=== PATIENT | male | born 1980 | race African-American/Black ===

== ENCOUNTER 2016-06-22 19:07 | Emergency (ER) | payer OTHER ==
[~2016-06-22] VITALS: Ht 167.6 cm; Wt 79.5 kg
[~2016-06-22 19:07] MED LIST: BENZ1TAB PO; HALO1 PO; HYDR50 PO; IBUP800 PO
[2016-06-22 19:08] VITALS: BP 135/65; PULSE 94; RESP 16; TEMP 98.8; O2SAT 96
[2016-06-22] MEDS ORDERED: VIST50CA PO (19:16)
[2016-06-22] MEDS ORDERED: HALO1TAB PO (19:17)
[2016-06-22] MEDS ORDERED: IBUPROFEN 800 MG TAB PO ONE (19:45)
--- NOTE | 2016-06-22 20:20 | PD ---
HPI Chief Complaint: GI Complaint Time Seen by Provider: 20:18 Travel History International Travel<30 days: No Contact w/Intl Traveler<30days: No Traveled to known affect area: No History of Present Illness HPI 36-year-old male with no significant medical history presents to the emergency department for evaluation of sore throat, fever, body aches, and chills. Patient states this has been going on since this morning. He states that he was sharing a joint with a girl who has had bronchitis. He states that she got a lot of her saliva on the joint. He states when he went to smoke the weed from the joint he began to feel like he was getting her sickness. He states he is only gotten worse since then. Denies any nausea, vomiting, diarrhea. No chest pain or tightness. No cough. No other symptoms to report. PFSH Past Medical History Alzheimer's Disease: No Arthritis: No Asthma: Yes Autoimmune Disease: No Blood Disorders: No Anxiety: Yes Depression: Yes Chemotherapy: No COPD: No Cerebrovascular Accident: No Diminished Hearing: No Endocrine: No Glaucoma: No Genitourinary: No Hepatitis: No Hiatal Hernia: No Hypertension: No Immune Disorder: No Musculoskeletal: No Neurologic: No Reproductive: No Migraines: No Radiation Therapy: No Schizophrenia: Yes Sleep Apnea: No Thyroid Disease: No Past Surgical History Abdominal Surgery: No Cardiac Surgery: No Ear Surgery: No Endocrine Surgery: No Eye Surgery: No Genitourinary Surgery: No Gynecologic Surgery: No Oral Surgery: Yes Pacemaker: No Thoracic Surgery: No Other Surgery: Yes (HEMORROIDECTOMY) Social History Alcohol Use: No (PT DENIES) Tobacco Use: Yes (1PPD) Substance Use: Yes (PT ADMITS TO MARIJUANA, FLAKKA) Allergies-Medications (Allergen,Severity, Reaction): Coded Allergies: Amoxicillin (Verified Allergy, Severe, HIVES, 06/22/16) Penicillin (Verified Allergy, Severe, 06/22/16) Reported Meds & Prescriptions Reported Meds & Active Scripts Active Reported Haloperidol 1 Mg Tab 1 Mg PO BID Vistaril (Hydroxyzine Pamoate) 50 Mg Cap 50 Mg PO BID PRN Review of Systems Except as stated in HPI: all other systems reviewed are Neg Physical Exam Narrative GENERAL: Well-nourished male patient in no acute distress SKIN: Warm and dry. HEAD: Atraumatic. Normocephalic. EYES: Pupils equal and round. No scleral icterus. No injection or drainage. ENT: Mucosa pink and moist drinks with erythema, no exudates.. No uvular edema. No uvular, palatal, or tonsillar deviation. Airway patent. Nasal turbinates appear normal without nasal blood, purulent drainage or septal hematoma. NECK: Trachea midline. No JVD. CARDIOVASCULAR: Regular rate and rhythm. No murmur appreciated. RESPIRATORY: No accessory muscle use. Clear to auscultation. Breath sounds equal bilaterally. GASTROINTESTINAL: Abdomen soft, non-tender, nondistended. Hepatic and splenic margins not palpable. MUSCULOSKELETAL: No obvious deformities. No clubbing. No cyanosis. No edema. NEUROLOGICAL: Awake and alert. No obvious cranial nerve deficits. Motor grossly within normal limits. Normal speech. PSYCHIATRIC: Appropriate mood and affect; insight and judgment normal. Data Data Last Documented VS Vital Signs Date Time Temp Pulse Resp B/P Pulse Ox O2 Delivery O2 Flow Rate FiO2 06/22/16 19:08 98.8 94 16 135/65 96 Room Air Orders Influenzae A/B Antigen (06/22/16 19:35) Ibuprofen (Motrin) (06/22/16 19:45) MDM Medical Decision Making Medical Screen Exam Complete: Yes Emergency Medical Condition: Yes Medical Record Reviewed: Yes Differential Diagnosis Influenza versus pharyngitis strep versus viral versus viral syndrome Narrative Course 36-year-old male presents to emergency department for evaluation. Patient appears without distress. Influenza screen is positive for influenza A. Patient is calm. Symptomatic care. He agrees to return immediately with any acute worsening of symptoms. Diagnosis Primary Impression: Influenza A Referrals: Primary Care Physician Patient Instructions: General Instructions, Influenza (ED) Additional Instructions: Rest Maintain adequate oral hydration Follow up with your primary care provider Tylenol or ibuprofen as directed on the package as needed for fever or pain Return to ED with acute worsening of symptoms Med/Other Pt SpecificInfo: No Change to Meds Disposition: 01 DISCHARGE HOME Condition: Stable Maria Elena Macias Jun 22, 2016 20:20
== END 2016-06-22 20:38 | disposition home or self-care (01) ==
LOC: NEPB 19:07
DX: J09.X2 Influenza due to identified novel influenza A virus with other respiratory manifestations (principal)
CPT/HCPCS: 87804; 99283

== ENCOUNTER 2017-10-20 04:10 | Emergency (ER) | payer OTHER, MEDICAID ==
[~2017-10-20 04:10] MED LIST changes: -BENZ1TAB PO; +CLIN300C5 PO; -HALO1 PO; +HALO100P IM; +HALO1TAB PO; -HYDR50 PO; -IBUP800 PO; +VIST25CA PO; +VIST50CA PO
[2017-10-20 04:13] VITALS: BP 120/57; PULSE 80; RESP 18; TEMP 97.9; O2SAT 99
--- NOTE | 2017-10-20 04:30 | PD ---
HPI Chief Complaint: Pain: Acute or Chronic Time Seen by Provider: 04:22 Travel History International Travel<30 days: No Contact w/Intl Traveler<30days: No Traveled to known affect area: No History of Present Illness HPI 37-year-old black male presents emergency department with a 2 day history of right knee pain after wrestling with a friend. He states that he had twisted his right knee. He has had pain on the medial aspect. He denies any numbness or tingling. Pain is mild. Worse with walking. No alleviating factors. No other injuries. History Past Medical Histgory Medical History: Denies Significant Hx Tetanus Vaccination: < 5 Years Hx Chemotherapy: No Hx Radiation Therapy: No Past Surgical History Surgical History: No Previous Surgery Social History Alcohol Use: No (denies ) Tobacco Use: No Allergies-Medications (Allergen,Severity, Reaction): Coded Allergies: amoxicillin (Unverified Allergy, Severe, HIVES, 10/20/17) penicillin G (Unverified Allergy, Severe, 10/20/17) Penicillins (Verified Allergy, Unknown, 10/20/17) Reported Meds & Prescriptions Reported Meds & Active Scripts Active Diclofenac Sodium DR (Diclofenac Sodium) 75 Mg Tabdr 75 Mg PO BID Clindamycin (Clindamycin HCl) 300 Mg Cap 300 Mg PO TID 7 Days Reported Vistaril (Hydroxyzine Pamoate) 25 Mg Cap Unknown Dose PO HS Haldol Decanoate Inj (Haloperidol Decanoate) 100 Mg/Ml Inj 100 Mg IM Q28D Haloperidol 1 Mg Tab 1 Mg PO BID Vistaril (Hydroxyzine Pamoate) 50 Mg Cap 50 Mg PO BID PRN Review of Systems General / Constitutional: No: Fever Eyes: No: Visual changes HENT: No: Headaches, Neck Stiffness, Neck Pain Cardiovascular: No: Chest Pain or Discomfort Respiratory: No: Shortness of Breath Gastrointestinal: No: Abdominal Pain Genitourinary: No: Dysuria Musculoskeletal: Positive: Arthralgias, Limited ROM, Pain, No: Myalgias, Weakness, Edema Skin: No Rash Neurologic: No: Weakness Psychiatric: No: Depression Endocrine: No: Polydipsia Hematologic/Lymphatic: No: Easy Bruising Physical Exam Narrative GENERAL: This is a well-nourished, well-developed patient, in no apparent distress. SKIN: No rashes, ecchymoses or lesions. Warm and dry. HEAD: Atraumatic. Normocephalic. EYES: PERRL, EOMI, no discharge or injection. No scleral icterus. EARS: Clear NOSE: Nasal turbinates appear normal. THROAT: Mucosa pink and moist. Airway patent. NECK: Trachea midline. supple, moves head freely. LUNGS: Clear to auscultation. CV: Regular in rhythm. ABDOMEN: Soft nontender. EXT: No clubbing cyanosis or edema. Examination of the right lower extremity reveals tenderness to the medial component of the knee. No anterior posterior drawer. No medial lateral collateral ligament instability. He has full extension with slightly limited flexion. He is able to bear weight at bedside and ambulates with a mildly antalgic gait. Neurovascular intact distally. No pain in the hip, ankle, foot. Data Data Last Documented VS Vital Signs Date Time Temp Pulse Resp B/P (MAP) Pulse Ox O2 Delivery O2 Flow Rate FiO2 10/20/17 04:13 97.9 80 18 120/57 (78) 99 Orders Orders Ed Discharge Order (10/20/17 04:34) Naproxen (Naprosyn) (10/20/17 04:45) MDM Medical Screen Exam Complete: Yes Emergency Medical Condition: No Differential Diagnosis MDM: High Differential diagnoses: Fracture, sprain, strain, dislocation, contusion, neurovascular injury Narrative Course A medical screening exam was performed: At the time of evaluation the presenting medical condition was determined not to be of an emergent nature. The patient was given the option of receiving additional care, but declined. Patient was given options for additional community resources from which to obtain care. The Patient Has Been advised to seek medical attention for their presenting complaint. The patient has been advised to return to the ER at any time if an emergent condition develops. The patient is opted to stay. This is right knee sprain Primary Impression: Right knee sprain Patient Instructions: General Instructions Additional Instructions: rest. Elevation. Ice packs for the next 3 days. Limit weightbearing. Diclofenac. Follow-up with an orthopedist or your doctor in one week. Return to the ER if any problems Med/Other Pt SpecificInfo: Prescription(s) given Scripts Diclofenac Sodium DR (Diclofenac Sodium DR) 75 Mg Tabdr 75 MG PO BID, #14 TAB 0 Refills Prov: Mirna Cabezas DO 10/20/17 Disposition: 01 DISCHARGE HOME Condition: Stable Cash Moya Oct 20, 2017 04:30
[2017-10-20] MEDS ORDERED: DICL75TA PO (04:35)
[2017-10-20] MEDS ORDERED: NAPROXEN 500 MG TAB PO ONE (04:45)
== END 2017-10-20 04:44 | disposition home or self-care (01) ==
LOC: NEPD 04:10
DX: S83.91XA Sprain of unspecified site of right knee, initial encounter (principal); X50.1XXA Overexertion from prolonged static or awkward postures, initial encounter; Y93.72 Activity, wrestling
CPT/HCPCS: 99283

== ENCOUNTER 2018-02-01 06:17 | Inpatient (IN) ==
[2018-02-01 07:07] LABS: Baso # (Auto) 0.1 th/mm3 (0.0-0.2); Eos # (Auto) 0.2 th/mm3 (0.0-0.4); Eos % (Auto) 3.1 % (0.0-4.0); Hemoglobin 14.3 gm/dL (13.0-17.0); Lymph # (Auto) 1.8 th/mm3 (1.0-4.8); Lymph % (Auto) 25.4 % (9.0-44.0); Mean Corpuscular HGB Conc 34.1 % (32.0-36.0); Mean Corpuscular Volume 85.1 fL (80.0-100.0); Mean Platelet Volume 7.7 fL (7.0-11.0); Mono # (Auto) 0.7 th/mm3 (0.0-0.9); Mono % (Auto) 10.5 % (0.0-8.0); Neut # (Auto) 4.2 th/mm3 (1.8-7.7); Platelet Count 254 th/mm3 (150-450); Red Blood Count 4.94 mil/mm3 (4.50-5.90); Red Cell Distribution Width 14.3 % (11.6-17.2)
[2018-02-01 07:33] LABS: Anion Gap 10 meq/L (5-15); Blood Urea Nitrogen 17 mg/dL (7-18); Calcium 8.8 mg/dL (8.5-10.1); Carbon Dioxide 26.4 meq/L (21.0-32.0); Chloride 104 meq/L (98-107); Glomerular Filtration Rate 64 mL/min (>89); Glucose,Random 85 mg/dL (74-106); Potassium 3.5 meq/L (3.5-5.1); Sodium 140 meq/L (136-145)
--- NOTE | 2018-02-01 07:37 | ED ---
HPI General Chief Complaint: Psychiatric Symptoms Stated Complaint: Psy Time Seen by Provider: 02/01/18 06:33 Source: patient Mode of arrival: ambulatory Limitations: no limitations History of Present Illness HPI Narrative: 37-year-old male presents to the emergency department under Sepulveda act. According to the Sepulveda act report the patient stated he tried to poke his eye out because he wants to hurt himself and is suicidal. On my examination the patient does admit to trying to poke his left eye out using his finger. He says that he is suicidal. Reports that he rolled a blunt with marijuana and tobacco this morning and put cocaine in it and took a puff off of it trying to overdose. He denies history of suicidal attempts. Says he is "tired of life." Denies homicidal ideations. Says that he is hearing voices telling him to do things to people, but no "crazyism." Reports alcohol use. Reports left eye pain 11/20. Reports blurriness and photophobia. No treatments tried. No known aggravating or relieving factors. Onset unknown. Duration unknown. Reports act as his PCP. Allergies to penicillin. Denies significant past medical history. Reports history of schizophrenia and gets a shot of an unknown medication and last received 2 weeks ago. Has no other medical complaints. No other modifying factors or associated signs and symptoms. Related Data Home Medications Medication Instructions Recorded Confirmed haloperidol decanoate [Haldol 100 mg IM Q3W 12/10/17 02/01/18 Decanoate] Allergies Allergy/AdvReac Type Severity Reaction Status Date / Time amoxicillin Allergy Severe HIVES Verified 12/28/17 16:20 penicillin G Allergy Severe Anaphylaxis Verified 12/28/17 16:20 Penicillins Allergy Unknown Anaphylaxis Verified 12/28/17 16:20 Review of Systems ROS: all other systems reviewed are negative [facility] Medical History Medical History Schizophrenia (Acute) Social History Social History Substance History: Active Abuse Second Hand Smoke Exposure: Yes Smoking Status: Current every day smoker Tobacco Type: Cigarettes How Often Do You Have a Drink Containing Alcohol: Monthly or less Recent Travel in [place] within the Last 8 Weeks: No Recent Out of Country Travel within the Last 8 Weeks: No Substance Abuse Detail Crack/Cocaine: Substance Use Status: Active Route Used Substance Abuse: Inhalation Immunization History Tetanus Immunization: >5 Years Hx Influenza Vaccine This Season: No Exam Narrative Exam Narrative: GENERAL: Well-nourished, well-developed Black male patient, in no acute distress SKIN: Warm and dry. HEAD: Atraumatic. Normocephalic. EYES: Pupils round and unequal; right pupil at 3 mm with brisk reaction; left pupil at 5mm with brisk reaction. PERRLA. EOMI. visual acuity 20/25 bilateral; 20/30 right; 20/25 left. Left lid eversion with no foreign body noted. Left eye with scleral erythema and without lid edema; minimal scleral hemorrhage noted. No orbital tenderness, erythema or cellulitis. Left eye with photophobia. No consensual photophobia. No scleral icterus. Clear drainage. Bonilla lamp exam normal. ENT: Mucosa pink and moist. Airway patent. NECK: Trachea midline. CARDIOVASCULAR: Regular rate And rhythm. No murmur appreciated. RESPIRATORY: No accessory muscle use. Breath sounds clear and equal bilaterally. No retractions or tachypnea. GASTROINTESTINAL: Abdomen soft, non-tender, nondistended. Positive bowel sounds. No hepato-splenomegaly, or palpable masses. No guarding. NEUROLOGICAL: Awake and alert. Oriented 3. No obvious cranial nerve deficits. Motor grossly within normal limits. Normal speech. PSYCHIATRIC: No delusional thought processes. No hallucinations. Course Initial Documented Vital Signs Temperature 98.3 F 02/01/18 06:29 Pulse Rate 74 02/01/18 06:29 Respiratory Rate 15 02/01/18 06:29 Blood Pressure 117/64 02/01/18 06:29 Pulse Oximetry 98 02/01/18 06:29 Last Documented Vital Signs Temperature 97.1 F L 02/03/18 06:04 Pulse Rate 75 02/03/18 06:04 Respiratory Rate 21 02/03/18 06:04 Blood Pressure 129/82 02/03/18 06:04 Pulse Oximetry 96 02/03/18 06:04 Medical Decision Making [facility] Narrative Medical decision making narrative: Patient presents under a Sepulveda act. Physical examination and vital signs are essentially unremarkable. Patient is complaining of left eye pain secondary to trying to poke his eye out. Eye exam is essentially unremarkable except for noted mild left eye scleral hemorrhage. And unequal pupils. both pupils are reactive to light. Visual acuity is unremarkable. Patient will not allow me to check the pressure reading with tonometry. He says he does not care about his eye. Instructed patient to follow-up with engraver copperplate. Psych screen has been ordered. If the laboratory results are unremarkable, the patient will be medically cleared for psychiatric evaluation and disposition. Medical Screen Exam Complete: Yes Emergency Medical Condition: Yes Differential Diagnosis Differential Diagnosis: Drug-induced psychosis, suicidal attempt ideation, schizophrenia, medical clearance for psychiatric evaluation Lab Data Result diagrams: 02/01/18 06:50 02/01/18 06:50 Lab Results 02/01/18 02/01/18 02/01/18 Range/Units 06:50 06:50 07:55 WBC 7.0 (4.0-11.0) th/mm3 RBC 4.94 (4.50-5.90) mil/mm3 Hgb 14.3 (13.0-17.0) gm/dL Hct 42.0 (39.0-51.0) % MCV 85.1 (80.0-100.0) fL MCH 29.0 (27.0-34.0) pg MCHC 34.1 (32.0-36.0) % RDW 14.3 (11.6-17.2) % Plt Count 254 (150-450) th/mm3 MPV 7.7 (7.0-11.0) fL Neut % (Auto) 60.0 (16.0-70.0) % Lymph % (Auto) 25.4 (9.0-44.0) % [place] % (Auto) 10.5 H (0.0-8.0) % Eos % (Auto) 3.1 (0.0-4.0) % Baso % (Auto) 1.0 (0.0-2.0) % Neut # (Auto) 4.2 (1.8-7.7) th/mm3 Lymph # (Auto) 1.8 (1.0-4.8) th/mm3 [place] # (Auto) 0.7 (0.0-0.9) th/mm3 Eos # (Auto) 0.2 (0.0-0.4) th/mm3 Baso # (Auto) 0.1 (0.0-0.2) th/mm3 WBC Differential . Differential Comment Auto diff final Sodium 140 (136-145) meq/L Potassium 3.5 (3.5-5.1) meq/L Chloride 104 (98-107) meq/L Carbon Dioxide 26.4 (21.0-32.0) meq/L Anion Gap 10 (5-15) meq/L BUN 17 (7-18) mg/dL Creatinine 1.51 H (0.60-1.30) mg/dL Estimated GFR 64 L (>89) mL/min Random Glucose 85 (74-106) mg/dL Calcium 8.8 (8.5-10.1) mg/dL TSH 2.170 (0.358-3.740) uIU/mL Urine Opiates Screen Neg (Neg) Ur Barbiturates Screen Neg (Neg) Ur Amphetamines Screen Neg (Neg) U Benzodiazepines Scrn Neg (Neg) Urine Cocaine Screen Pos H (Neg) U Cannabinoids Screen Neg (Neg) Serum Alcohol Less than 3 (0-5) mg/dL Discharge Plan Discharge Disposition Patient Disposition: 30 Still Patient Discharge Condition Condition: Stable Discharge Details Diagnosis: Encounter for medical clearance for patient hold, Blunt injury, left eye Physicians Team ED Provider: Gopi Colón ED Midlevel Provider: Nga Kaba Primary Care Provider: UNKNOWN, Attending Provider: Eliseo June Other Providers: Matilda Santana Discharge Interventions Interventions: ED Discharge Assessment Last Done: 02/02/18 12:44 Vital Signs Last Done: 02/01/18 21:55 Status ED Status: Discharged
[2018-02-01 08:15] LABS: Amphetamine Screen,Urine Neg (Neg); Barbiturate Screen,Urine Neg (Neg); Cannabinoid Screen,Urine Neg (Neg); Cocaine Screen,Urine Pos (Neg)
[2018-02-01 08:23] LABS: Opiate Screen,Urine Neg (Neg)
[2018-02-02] MEDS ORDERED: Haloperidol Inj 5 MG/ML Ampul IV.PUSH PRN (12:21)
[2018-02-02] MEDS ORDERED: Bisacodyl 10 MG Supp RECTAL PRN (12:21)
[2018-02-02] MEDS ORDERED: LORazepam 1 MG Tablet PO PRN (12:21)
[2018-02-02] MEDS ORDERED: Aluminum/Magnesium/Simethacone Susp 30 ML UDC PO PRN (12:21)
[2018-02-02] MEDS ORDERED: Haloperidol 5 MG Tablet PO SCH (12:30)
--- NOTE | 2018-02-02 12:36 | P.HPPSY ---
Provisional Diagnosis Admission Date: February 01, 2018 06:17 [place] I.: Schizophrenia, polysubstance dependence including cocaine, cannabis and alcohol [place] II.: Deferred Competence Certification of Person's Competence To Provide Express and Informed Consent I have personally examined Lenny Guerra, a person being served at [facility] on, February 02, 2018 1226. Express and informed consent means consent voluntarily given in writing, by a competent person, after sufficient explanation and disclosure of the subject matter involved to enable the person to make a knowing and willful decision without any element of force, fraud, deceit, duress, or other form of constraint or coercion. This person is 18 years of age or older, is not now known to be incompetent to consent to treatment with a guardian advocate, and does not have a health care surrogate or proxy currently making medical treatment decisions. I have found this person to be one of the following: [] Competent to provide express and informed consent, as defined above, for voluntary admission to this facility and is competent to provide express and informed consent for treatment. He/she has the consistent capacity to make well reasoned, willful, and knowing decisions concerning his or her medical or mental health treatment. The person fully and consistently understands the purpose of the admission for examination/placement and is fully capable of personally exercising all rights assured [place] Incompetent to provide express and informed consent to voluntary admission, and this is incompetent to provide express and informed consent to treatment. The person must be transferred to involuntary status and a petition for a guardian advocate filed with the Circuit Court. [x] Refusing to provide express and informed consent to voluntary admission but is competent to provide express and informed consent for treatment. The person must be discharged or transferred to involuntary status. Form shall be completed within 24 hours of a person's arrival at the receiving facility and filed in the clinical record of each person: 1. Admitted on a voluntary basis 2. Permitted to provide express and informed consent to his/her own treatment 3. Allowed to transfer from involuntary to voluntary status 4. Prior to permitting a person to consent to his or her own treatment after having been previously found incompetent to consent to treatment. History of Present Illness Capacity: Has capacity History of Present Illness: The patient is a 37-year-old -[place] man, who was domiciled in [facility] with his uncle, unemployed, supported by [facility], single, with a psychiatric history of schizophrenia, polysubstance dependence including cocaine, cannabis, alcohol previous psychiatric hospitalizations, suicide attempts, outpatient care in [facility], he is on Haldol decannulate 100 mg monthly, unknown, when was the last dose, no significant medical history, presents to the emergency department under Sepulveda act. According to the Sepulveda act report the patient stated he tried to poke his eye out because he wants to hurt himself and is suicidal. On initial ER examination the patient does admit to trying to poke his left eye out using his finger "I want to be blind". He says that he is suicidal. He says that he is family member has been blinking, and he wants to kill them. Patient seems to be quite disorganized, paranoid, and bizarre. Reports that he rolled a blunt with marijuana and tobacco this morning and put cocaine in it and took a puff off of it trying to overdose. The patient has been isolated in the ER, poorly cooperative with the staff. However, with me he was calm and cooperative. He also reports that he has been hearing voices, usually good boluses, "but sometimes they can be very mean"' PPHx: Psychiatric history of schizophrenia, previous hospitalizations, suicide attempts, outpatient psychiatric care in [facility], on Haldol decanoate 100 mg 1 PMHx;: No medical history Substance Hx: Reports the use of cannabis, cocaine and alcohol almost daily Family Hx: Mother has scheduled for Social Hx; patient was born and raised in [facility], he lives in [place] with family members, unemployed, supported by [facility], single, his highest level of education is GED Review of Systems All other systems reviewed negative except as stated in HPI Psychiatric: Reports behavioral changes, Reports irritability, Reports paranoia , Reports tactile hallucinations PMFSH - History History Provided By: Patient - Medical History Medical History: Medical History (Last Reviewed 02/01/18 @ 07:39 by JOSÉ MIGUEL Richter) Schizophrenia (Acute) - Surgical History Surgical History: Surgical History (Last Reviewed 12/28/17 @ 21:12 by Ivonne Sepulveda MD) No history of previous surgery - Tobacco History Second Hand Smoke Exposure: No Tobacco Use In Past 30 Days: Yes Smoking Status: Heavy tobacco smoker Tobacco Type: Cigarettes - Alcohol History How Often Do You Have a Drink Containing Alcohol: 4 or more times a week - Substance Use History Substance History: No History of Abuse - Substance Use Type Crack/Cocaine Status: Active Route Used: Inhalation - Travel History Recent Travel in the [place] Within the Last 8 Weeks: No Recent Travel Out of the Country Within the Last 8 Weeks: No - Immunization History Tetanus Immunization: >5 Years Hx Influenza Vaccine This Season: No Medications and Allergies Active Medications: Active Medications Al Hydrox/Mg Hydrox/Simethicone (Mag-Al Plus Susp Liq) 30 ml PO Q6H PRN PRN Reason: DYSPEPSIA Al Hydroxide/Mg Hydroxide (Milk Of Magnesia Liq) 30 ml PO Q12H PRN PRN Reason: Mild Constipation Bisacodyl (Dulcolax Supp) 10 mg RECTAL DAILY PRN PRN Reason: SEVERE CONSITIPATION Flumazenil (Romazecon Inj) 0.2 mg IV.PUSH Q1M PRN PRN Reason: OVERSEDATION Haloperidol (Haldol) 5 mg PO BID FRANCISCO Haloperidol Lactate (Haldol Inj) 1 mg IV.PUSH Q15M PRN PRN Reason: for severe agitation Lactulose (Lactulose Liq) 30 ml PO DAILY PRN PRN Reason: SEVERE CONSITIPATION Lorazepam (Ativan) 1 mg PO Q4H PRN PRN Reason: for CIWA 8-10 Lorazepam (Ativan) 2 mg PO Q2H PRN PRN Reason: for CIWA 11-14 Lorazepam (Ativan Inj) 2 mg IV.PUSH Q2H PRN PRN Reason: for CIWA 11-14 Lorazepam (Ativan Inj) 2 mg IV.PUSH Q1H PRN PRN Reason: for CIWA 15-20 Lorazepam (Ativan Inj) 1 mg IV.PUSH Q4H PRN PRN Reason: for CIWA 8-10 Lorazepam (Ativan Inj) 2 mg IV.PUSH Q15M PRN PRN Reason: for CIWA > 20 Senna/Docusate Sodium (Christine-Colace) 1 tab PO BID FRANCISCO Sennosides (Senokot) 17.2 mg PO Q12H PRN PRN Reason: Moderate Constipation Allergies Allergy/AdvReac Type Severity Reaction Status Date / Time amoxicillin Allergy Severe HIVES Verified 12/28/17 16:20 penicillin G Allergy Severe Anaphylaxis Verified 12/28/17 16:20 Penicillins Allergy Unknown Anaphylaxis Verified 12/28/17 16:20 Home Medications Medication Instructions Recorded Confirmed Type haloperidol decanoate [Haldol 100 mg IM Q3W 12/10/17 02/01/18 History Decanoate] Results - Labs CBC & Chem 7: 02/01/18 06:50 02/01/18 06:50 Exam Vital signs: Vital Signs 02/01/18 16:40 02/01/18 21:55 Temperature 97.8 F Pulse Rate 64 75 Respiratory Rate 18 16 Blood Pressure 112/58 L 106/64 Pulse Oximetry 98 98 Narrative: No tremors, no EPS, no psychomotor retardation or agitation, no gait disturbance - Constitutional mild distress - Routine HEENT Exam Head: Present: normocephalic, atraumatic ENT: Present: mucous membranes moist - Detailed Eye Exam Visual acuity: Visual Acuity Visual Acuity Uncorrected [ 20/25 Bilateral] Visual Acuity Uncorrected [ 20/25 Left] Visual Acuity Uncorrected [ 20/30 Right] Mental Status Examination Appearance: Dirty, Disheveled, Malodorous Consciousness: Alert Orientation: x4 Motor Activity: Normal gait Speech: Unremarkable Language: Adequate Fund of Knowledge: Adequate Attention and Concentration: Adequate Memory: Unremarkable Mood: Oppositional Affect: Irritable Thought Process & Associations: Disorganized Thought Content: Bizarre thinking, Hallucinations Hallucination Type: Auditory Delusion Type: Bizarre, Paranoid Suicidal Ideation: Yes Suicidal Plan: No Suicidal Intention: No Homicidal Ideation: No Homicidal Plan: No Homicidal Intention: No Insight: Poor Judgment: Poor Assessment and Plan - Assessment (1) Schizophrenia Code(s): F20.9 - Schizophrenia, unspecified Status: Acute - Plan Plan: Estimated LOS: [] days On psychiatric evaluation today the patient presents disorganized, with commanding type auditory hallucinations, suicidal ideation, and also homicidal ideation, he seems to be very this regulated, internally preoccupied, even paranoid. Patient has a psychiatric history of schizophrenia, multiple psychiatric admissions, he is on Haldol Decanoate 100 mg. Given the level of psychosis, he has an elevated risk of danger to self and others, he will be admitted to psychiatry for stabilization and safety. I will start Haldol 5 mg twice daily. Benztropine 1 mg twice daily. Will consult psychiatry for second opinion. Justification for Continued Inpatient Stay: Patient is for psychiatric admission
[2018-02-02] MEDS: Haloperidol 5 MG Tablet PO SCH (21:17)
[2018-02-02] MEDS: Senna/Docusate Sodium 8.6/50 MG Tablet PO SCH (21:18)
[2018-02-03] MEDS: Senna/Docusate Sodium 8.6/50 MG Tablet PO SCH ×2 (08:46→20:21)
[2018-02-03] MEDS: Haloperidol 5 MG Tablet PO SCH ×2 (08:47→20:21)
[2018-02-03 08:52] LABS: Calcium 8.7 mg/dL (8.5-10.1); Carbon Dioxide 28.5 meq/L (21.0-32.0)
[2018-02-03 09:00] LABS: Chol/HDL Ratio 3.07 Ratio
[2018-02-03 12:28] LABS: Hemoglobin A1c 5.6 % (4.3-6.0)
--- NOTE | 2018-02-03 13:40 | P.CONPSY ---
Provisional Diagnosis Admission Date: February 02, 2018 12:23 [place] I.: Schizophrenia, polysubstance dependence including cocaine, cannabis and alcohol [place] II.: Deferred History of Present Illness Service: Psychiatry Consult date: 02/03/18 Reason for Consult: 2nd opinion Primary Care Provider: UNKNOWN Family Provider: No Primary Care Physician Chief Complaint: "Im ready to leave now" History of Present Illness: Pt is a 37YOAAM with a hx of schizophrenia and substance abuse who was [place] [facility] [place] due to psychosis and attempting to poke his eye out in suicide attempt. Pt admits to actions but states that he is feeling better today and would like to go home. He reports that he was having AVH. He denies them today, but appears to still be responding to internal stimuli. He is cooperative, but impulsive and engages in some disorganized behaviors. He denies pain or discomfort today. He has been compliant with medications and denies side effecgts. Review of Systems Psychiatric: Reports hearing things others do not hear PMFSH - History History Provided By: Patient - Medical History Medical History: Medical History (Last Reviewed 02/03/18 @ 19:05 by Matilda Santana MD) Schizophrenia (Acute) - Surgical History Surgical History: Surgical History (Last Reviewed 02/03/18 @ 19:05 by Matilda Santana MD) No history of previous surgery - Tobacco History Second Hand Smoke Exposure: Yes Tobacco Use In Past 30 Days: Yes Smoking Status: Current every day smoker Tobacco Type: Cigarettes - Alcohol History How Often Do You Have a Drink Containing Alcohol: Monthly or less - Substance Use History Substance History: Active Abuse - Substance Use Type Crack/Cocaine Status: Active Route Used: Inhalation Reason for Use: Calm Down - Travel History Recent Travel in the [place] Within the Last 8 Weeks: No Recent Travel Out of the Country Within the Last 8 Weeks: No - Immunization History Tetanus Immunization: >5 Years Hx Influenza Vaccine This Season: No Medications and Allergies Active Medications: Active Medications Al Hydrox/Mg Hydrox/Simethicone (Mag-Al Plus Susp Liq) 30 ml PO Q6H PRN PRN Reason: DYSPEPSIA Al Hydroxide/Mg Hydroxide (Milk Of Magnesia Liq) 30 ml PO Q12H PRN PRN Reason: Mild Constipation Bisacodyl (Dulcolax Supp) 10 mg RECTAL DAILY PRN PRN Reason: SEVERE CONSITIPATION Flumazenil (Romazecon Inj) 0.2 mg IV.PUSH Q1M PRN PRN Reason: OVERSEDATION Haloperidol (Haldol) 5 mg PO BID [facility] Last Admin: 02/03/18 08:47 Dose: 5 mg Haloperidol Lactate (Haldol Inj) 1 mg IV.PUSH Q15M PRN PRN Reason: for severe agitation Lactulose (Lactulose Liq) 30 ml PO DAILY PRN PRN Reason: SEVERE CONSITIPATION Lorazepam (Ativan) 1 mg PO Q4H PRN PRN Reason: for CIWA 8-10 Lorazepam (Ativan) 2 mg PO Q2H PRN PRN Reason: for CIWA 11-14 Lorazepam (Ativan Inj) 2 mg IV.PUSH Q2H PRN PRN Reason: for CIWA 11-14 Lorazepam (Ativan Inj) 2 mg IV.PUSH Q1H PRN PRN Reason: for CIWA 15-20 Lorazepam (Ativan Inj) 1 mg IV.PUSH Q4H PRN PRN Reason: for CIWA 8-10 Lorazepam (Ativan Inj) 2 mg IV.PUSH Q15M PRN PRN Reason: for CIWA > 20 Nicotine (Habitrol 21 Mg Patch.24 Hr) 1 patch T-DERMAL DAILY [facility] Last Admin: 02/03/18 11:38 Dose: 1 patch Patch Removal (Remove Old Patch) 1 each T-DERMAL DAILY [facility] Last Admin: 02/03/18 10:12 Dose: Not Given Senna/Docusate Sodium (Christine-Colace) 1 tab PO BID [facility] Last Admin: 02/03/18 08:46 Dose: 1 tab Sennosides (Senokot) 17.2 mg PO Q12H PRN PRN Reason: Moderate Constipation Allergies Allergy/AdvReac Type Severity Reaction Status Date / Time amoxicillin Allergy Severe HIVES Verified 12/28/17 16:20 penicillin G Allergy Severe Anaphylaxis Verified 12/28/17 16:20 Penicillins Allergy Unknown Anaphylaxis Verified 12/28/17 16:20 Home Medications Medication Instructions Recorded Confirmed Type haloperidol decanoate [Haldol 100 mg IM Q3W 12/10/17 02/01/18 History Decanoate] Exam Vital signs: Vital Signs 02/02/18 13:45 02/03/18 06:04 Temperature 98.1 F 97.1 F L Pulse Rate 65 75 Respiratory Rate 19 21 Blood Pressure 104/62 129/82 Pulse Oximetry 98 96 Intake & Output 02/02/18 02/03/18 02/03/18 18:59 06:59 18:59 Weight 84.3 kg Other: Weight On Admission 84.3 kg - Detailed Eye Exam Visual acuity: Visual Acuity Visual Acuity Uncorrected [ 20/25 Bilateral] Visual Acuity Uncorrected [ 20/25 Left] Visual Acuity Uncorrected [ 20/30 Right] Mental Status Examination Appearance: Dirty, Disheveled, Malodorous Consciousness: Alert Orientation: x4 Motor Activity: Normal gait Speech: Unremarkable Language: Adequate Fund of Knowledge: Adequate Attention and Concentration: Adequate Memory: Unremarkable Mood: Other (elevated) Affect: Labile Thought Process & Associations: Disorganized Thought Content: Bizarre thinking, Hallucinations Hallucination Type: Auditory Delusion Type: Bizarre, Paranoid Suicidal Ideation: No (denies today) Suicidal Plan: No Suicidal Intention: No Homicidal Ideation: No Homicidal Plan: No Homicidal Intention: No Insight: Poor Judgment: Poor Assessment and Plan - Assessment (1) Schizophrenia Code(s): F20.9 - Schizophrenia, unspecified Status: Acute - Plan Plan: I agree that pt meets criteria for involuntary hospitalization given recent serious self-injurious behaviors and disorganizations. 2nd opinion paperwork completed. Justification for Continued Inpatient Stay: impariemtns in safety
[2018-02-04] MEDS: Haloperidol 5 MG Tablet PO SCH ×2 (08:46→20:32)
[2018-02-04] MEDS: Senna/Docusate Sodium 8.6/50 MG Tablet PO SCH ×2 (08:46→20:32)
--- NOTE | 2018-02-04 14:10 | P.PNPSY ---
Subjective Remarks: The patient was seen today for psychiatric reevaluation. Case was discussed with nurse in charge. The patient is found sleeping, easily arousable. Reports feeling much better. He says that last night he was sedated, was sweating and shaking. He reports that he has been drinking alcohol every day. Reports better mood today, denies suicidal and homicidal ideation, denies visual and auditory hallucinations. He is compliant medications, no significant side effects. There is no withdrawal symptoms at this moment. Mental Status Examination Appearance: Dirty, Disheveled, Malodorous Consciousness: Alert Orientation: x4 Motor Activity: Normal gait Speech: Unremarkable Language: Adequate Fund of Knowledge: Adequate Attention and Concentration: Adequate Memory: Unremarkable Mood: Other (elevated) Affect: Labile Thought Process & Associations: Disorganized Thought Content: Bizarre thinking, Hallucinations Hallucination Type: Auditory Delusion Type: Bizarre, Paranoid Suicidal Ideation: No (denies today) Suicidal Plan: No Suicidal Intention: No Homicidal Ideation: No Homicidal Plan: No Homicidal Intention: No Insight: Poor Judgment: Poor Assessment and Plan - Assessment (1) Schizophrenia Code(s): F20.9 - Schizophrenia, unspecified Status: Acute - Plan Plan: Continue current psychotropic regimen. Watch for withdrawal of alcohol symptoms. Motivation, psychoeducation and support provided Justification for Continued Inpatient Stay: Patient has an elevated risk to decompensate at a lower level of care per
[2018-02-05 06:16] VITALS: BP 114/60; PULSE 82; RESP 16; TEMP 98.3; O2SAT 97
[2018-02-05] MEDS: Haloperidol 5 MG Tablet PO SCH (08:38)
[2018-02-05] MEDS: Senna/Docusate Sodium 8.6/50 MG Tablet PO SCH (08:39)
--- NOTE | 2018-02-05 13:50 | P.DSPSY ---
Psychiatry Discharge Summary Inpatient Psychiatric care?: Yes Advance Directives: No Mental Health Advance Directive: Yes Health Care Proxy: Yes - Admission Admission Date: February 02, 2018 12:23 - Admission Diagnosis (1) Schizophrenia Code(s): F20.9 - Schizophrenia, unspecified Brief History: The patient is a 37-year-old -[place]ize[place] man, who was domiciled in [facility] with his uncle, unemployed, supported by [facility], single, with a psychiatric history of schizophrenia, polysubstance dependence including cocaine, cannabis, alcohol previous psychiatric hospitalizations, suicide attempts, outpatient care in [facility], he is on Haldol decannulate 100 mg monthly, unknown, when was the last dose, no significant medical history, presents to the emergency department under Sepulveda act. According to the Sepulveda act report the patient stated he tried to poke his eye out because he wants to hurt himself and is suicidal. On initial ER examination the patient does admit to trying to poke his left eye out using his finger "I want to be blind". He says that he is suicidal. He says that he is family member has been blinking, and he wants to kill them. Patient seems to be quite disorganized, paranoid, and bizarre. Reports that he rolled a blunt with marijuana and tobacco this morning and put cocaine in it and took a puff off of it trying to overdose. The patient has been isolated in the ER, poorly cooperative with the staff. However, with me he was calm and cooperative. He also reports that he has been hearing voices, usually good boluses, "but sometimes they can be very mean"' PPHx: Psychiatric history of schizophrenia, previous hospitalizations, suicide attempts, outpatient psychiatric care in [facility], on Haldol decanoate 100 mg 1 PMHx;: No medical history Substance Hx: Reports the use of cannabis, cocaine and alcohol almost daily Family Hx: Mother has scheduled for Social Hx; patient was born and raised in [facility] [place], he lives in [facility] with family members, unemployed, supported by [facility], single, his highest level of education is GED Tobacco Use In Past 30 Days: Yes How Often Do You Have a Drink Containing Alcohol: Monthly or less Hospital Course: The patient was initially admitted due to kind of disorganized behavior, tangential speech, and also aggressive and homicidal ideation toward his family. Initial psychiatric and psychosocial assessment performed. Safety measures taken. Patient was a started in Haldol 5 mg twice daily. The patient showed a good response to psychotropic regimen and also to therapies. No agitation, no aggressive behavior, no behavioral dysregulation observed. He was compliant with his medications, no significant side effects. At the moment of discharge the patient is calm, cooperative, logical, coherent and relevant. He denies suicidal and homicidal ideation, denies visual and auditory hallucinations. Oriented x3, he was counseled about the importance of avoiding recreational illegal drugs. Also about the importance of being compliant medications and follow-ups. - Discharge Discharge Date: 02/05/18 - Discharge Diagnosis (1) Schizophrenia Diagnosis: Principal Code(s): F20.9 - Schizophrenia, unspecified Status: Acute Discharge Disposition: Home - Discharge Instructions Activities You Can Perform: Regular- No Restrictions - Discharge Time <= 30 minutes Mental Status Examination Appearance: Appropriate Consciousness: Alert Orientation: x4 Motor Activity: Normal gait Speech: Unremarkable Language: Adequate Fund of Knowledge: Adequate Attention and Concentration: Adequate Memory: Unremarkable Mood: Appropriate Affect: Appropriate Thought Process & Associations: Intact Thought Content: Appropriate, Hallucinations Hallucination Type: Auditory Delusion Type: None Suicidal Ideation: No (denies today) Suicidal Plan: No Suicidal Intention: No Homicidal Ideation: No Homicidal Plan: No Homicidal Intention: No Insight: Fair Judgment: Impulsive Discharge/Advance Care Plan - Results Vital Signs: Last Vital Signs Temp 98.3 F 02/05/18 06:15 Pulse 82 02/05/18 06:15 Resp 16 02/05/18 06:15 BP 114/60 02/05/18 06:15 Pulse Ox 97 02/05/18 06:15 Lab Results: Laboratory Results Hemoglobin A1c 5.6 % (4.3-6.0) 02/03/18 07:40 Triglycerides 88 mg/dL (42-150) 02/03/18 07:40 Cholesterol 197 mg/dL (120-200) 02/03/18 07:40 LDL Cholesterol, Calc 115 mg/dL (0-99) H 02/03/18 07:40 HDL Cholesterol 64.0 mg/dL (40.0-60.0) H 02/03/18 07:40 TSH 2.170 uIU/mL (0.358-3.740) 02/01/18 06:50 Summary of Procedures: None Pending Results: None - Medications Number of antipsychotic medications at discharge: 1 - Discharge Care Plan Goals to Promote Your Health: * To prevent worsening of your condition and complications * To maintain your health at the optimal level Directions to Meet Your Goals: Take your medications as prescribed Follow your dietary instruction Follow activity as directed Keep your appointments as scheduled Take your immunizations and boosters as scheduled If your symptoms worsen call your PCP, if no PCP go to Urgent Care Center or Emergency Room For 04/12 questions related to your inpatient stay or results of tests pending at discharge, please contact Dr. Eliseo June MD at [phone] Smoking is Dangerous to Your Health. Avoid second hand smoking
== END 2018-02-05 14:50 | disposition home or self-care (01) ==
LOC: NEPD 06:17 → NEDA 02-02 12:23 → H270 02-02 12:45 → NEDA 02-02 12:45 → H270 02-02 12:59
PROVIDERS: ADMIT Psychiatry & Neurology Psychiatry; ATTEND Psychiatry & Neurology Psychiatry

== ENCOUNTER 2018-07-06 01:23 | Inpatient (IN) ==
[2018-07-06 05:32] LABS: Baso % (Auto) 0.6 % (0.0-2.0); Eos # (Auto) 0.3 th/mm3 (0.0-0.4); Eos % (Auto) 5.9 % (0.0-4.0); Hemoglobin 14.8 gm/dL (13.0-17.0); Lymph # (Auto) 1.3 th/mm3 (1.0-4.8); Lymph % (Auto) 26.5 % (9.0-44.0); Mean Corpuscular HGB Conc 33.6 % (32.0-36.0); Mean Corpuscular Hemoglobin 29.1 pg (27.0-34.0); Mean Corpuscular Volume 86.8 fL (80.0-100.0); Mean Platelet Volume 7.3 fL (7.0-11.0); Mono # (Auto) 0.4 th/mm3 (0.0-0.9); Neut # (Auto) 2.7 th/mm3 (1.8-7.7); Platelet Count 239 th/mm3 (150-450); Red Blood Count 5.07 mil/mm3 (4.50-5.90); Red Cell Distribution Width 13.9 % (11.6-17.2); White Blood Count 4.7 th/mm3 (4.0-11.0)
[2018-07-06 05:41] LABS: Alanine Aminotransferase 24 U/L (12-78); Albumin 3.5 g/dL (3.4-5.0); Anion Gap 8 meq/L (5-15); Aspartate Aminotransferase 22 U/L (15-37); Blood Urea Nitrogen 12 mg/dL (7-18); Calcium 7.8 mg/dL (8.5-10.1); Carbon Dioxide 23.8 meq/L (21.0-32.0); Chloride 109 meq/L (98-107); Glomerular Filtration Rate 88 mL/min (>89); Glucose,Random 84 mg/dL (74-106); Magnesium 2.2 mg/dL (1.5-2.5); Potassium 3.9 meq/L (3.5-5.1); Sodium 141 meq/L (136-145)
[2018-07-06 05:51] LABS: Alkaline Phosphatase 61 U/L (45-117); Thyroid Stimulating Hormone 0.761 uIU/mL (0.358-3.740); Total Protein 7.1 g/dL (6.4-8.2)
--- NOTE | 2018-07-06 06:29 | ED ---
HPI General Chief Complaint: Psychiatric Symptoms Stated Complaint: vol psych eval Time Seen by Provider: 07/06/18 06:41 Source: patient Mode of arrival: ambulatory Limitations: no limitations History of Present Illness complaint: Reports feels depressed Onset (ago): day(s) Duration: constant History of same: Yes Relieving factors: none Exacerbating factors: none Context: Reports recent drug abuse Treatments prior to arrival: Reports none Related Data Home Medications Medication Instructions Recorded Confirmed No Known Home Medications 04/02/18 07/06/18 Allergies Allergy/AdvReac Type Severity Reaction Status Date / Time amoxicillin Allergy Severe HIVES Verified 05/30/18 04:35 penicillin G Allergy Severe Anaphylaxis Verified 05/30/18 04:35 Penicillins Allergy Unknown Anaphylaxis Verified 05/30/18 04:35 Review of Systems ROS: all other systems reviewed are negative PMFSH Social History Social History Substance History: Active Abuse Second Hand Smoke Exposure: Yes Smoking Status: Current every day smoker Tobacco Type: Cigarettes How Often Do You Have a Drink Containing Alcohol: Never Recent Travel in [facility] within the Last 8 Weeks: No Recent Out of Country Travel within the Last 8 Weeks: No Immunization History Tetanus Immunization: Unsure Exam Narrative Exam Narrative: GENERAL: Well-nourished well-developed 38-year-old male no acute distress SKIN: Focused skin assessment warm/dry. HEAD: Atraumatic. Normocephalic. EYES: Pupils equal and round. No scleral icterus. No injection or drainage. ENT: No nasal bleeding or discharge. Mucous membranes pink and moist. NECK: Trachea midline. No JVD. CARDIOVASCULAR: Regular rate and rhythm. No murmur appreciated. RESPIRATORY: No accessory muscle use. Clear to auscultation. Breath sounds equal bilaterally. GASTROINTESTINAL: Abdomen soft, non-tender, nondistended. Hepatic and splenic margins not palpable. MUSCULOSKELETAL: No obvious deformities. No clubbing. No cyanosis. No edema. NEUROLOGICAL: Awake and alert. No obvious cranial nerve deficits. Motor grossly within normal limits. Normal speech. PSYCHIATRIC: Appropriate mood and affect; insight and judgment normal. Course Initial Documented Vital Signs Temperature 98.0 F 07/06/18 01:24 Pulse Rate 70 07/06/18 01:24 Respiratory Rate 16 07/06/18 01:24 Blood Pressure 140/75 07/06/18 01:24 Pulse Oximetry 99 07/06/18 01:24 Last Documented Vital Signs Temperature 98.0 F 07/06/18 01:24 Pulse Rate 59 L 07/06/18 05:18 Respiratory Rate 18 07/06/18 05:18 Blood Pressure 133/75 07/06/18 05:18 Pulse Oximetry 98 07/06/18 05:18 Medical Decision Making MDM Narrative Medical decision making narrative: The patient 38 years old and arrives to the ED voluntarily. He reports currently being homeless and that he is tired of being homeless. He reports feeling depressed because of it and would like to be admitted to the hospital. He denies plan of hurting himself or others. He would like some Gatorade and some ryan crackers. The workup tonight is essentially unremarkable. The patient is medically clear for evaluation by psychiatry service. Medical Screen Exam Complete: Yes Emergency Medical Condition: Yes Lab Data Result diagrams: 07/06/18 05:05 07/06/18 05:05 Lab Results 07/06/18 07/06/18 Range/Units 05:05 05:05 WBC 4.7 (4.0-11.0) th/mm3 RBC 5.07 (4.50-5.90) mil/mm3 Hgb 14.8 (13.0-17.0) gm/dL Hct 44.0 (39.0-51.0) % MCV 86.8 (80.0-100.0) fL MCH 29.1 (27.0-34.0) pg MCHC 33.6 (32.0-36.0) % RDW 13.9 (11.6-17.2) % Plt Count 239 (150-450) th/mm3 MPV 7.3 (7.0-11.0) fL Neut % (Auto) 58.0 (16.0-70.0) % Lymph % (Auto) 26.5 (9.0-44.0) % [place] % (Auto) 9.0 H (0.0-8.0) % Eos % (Auto) 5.9 H (0.0-4.0) % Baso % (Auto) 0.6 (0.0-2.0) % Neut # (Auto) 2.7 (1.8-7.7) th/mm3 Lymph # (Auto) 1.3 (1.0-4.8) th/mm3 [place] # (Auto) 0.4 (0.0-0.9) th/mm3 Eos # (Auto) 0.3 (0.0-0.4) th/mm3 Baso # (Auto) 0.0 (0.0-0.2) th/mm3 WBC Differential . Differential Comment Auto diff final Sodium 141 (136-145) meq/L Potassium 3.9 (3.5-5.1) meq/L Chloride 109 H (98-107) meq/L Carbon Dioxide 23.8 (21.0-32.0) meq/L Anion Gap 8 (5-15) meq/L BUN 12 (7-18) mg/dL Creatinine 1.14 (0.60-1.30) mg/dL Estimated GFR 88 L (>89) mL/min Random Glucose 84 (74-106) mg/dL Calcium 7.8 L (8.5-10.1) mg/dL Magnesium 2.2 (1.5-2.5) mg/dL Total Bilirubin 0.3 (0.2-1.0) mg/dL AST 22 (15-37) U/L ALT 24 (12-78) U/L Alkaline Phosphatase 61 (45-117) U/L Total Protein 7.1 (6.4-8.2) g/dL Albumin 3.5 (3.4-5.0) g/dL TSH 0.761 (0.358-3.740) uIU/mL Serum Alcohol Less than 3 (0-5) mg/dL Discharge Plan Discharge Disposition Patient Disposition: Sign Out(ED Internal Use Only) Discharge Condition Condition: Stable Physicians Team ED Provider: Lg Randhawa Primary Care Provider: Primary Care Alicia Aguirre Rxs /Orders / Referrals /Forms Prescriptions: No Action No Known Home Medications RF: 0 Status ED Status: With Doctor
[2018-07-06 08:55] LABS: Amphetamine Screen,Urine Neg (Neg); Barbiturate Screen,Urine Neg (Neg); Cannabinoid Screen,Urine Pos (Neg); Cocaine Screen,Urine Pos (Neg)
[2018-07-06 09:03] LABS: Opiate Screen,Urine Neg (Neg)
[2018-07-06] MEDS ORDERED: Acetaminophen 325 MG Tablet PO PRN (21:29)
[2018-07-06] MEDS ORDERED: Aluminum/Magnesium/Simethacone Susp 30 ML UDC PO PRN (21:29)
[2018-07-06] MEDS ORDERED: LORazepam 1 MG Tablet PO PRN (21:29)
--- NOTE | 2018-07-07 21:16 | P.HPPSY ---
Provisional Diagnosis Admission Date: July 06, 2018 18:58 [place] I.: schizophrenia cannabis abuse cocaine abuse [place] II.: def Competence Certification of Person's Competence To Provide Express and Informed Consent I have personally examined Lenny Guerra, a person being served at [facility] on, July 07, [id number]. Express and informed consent means consent voluntarily given in writing, by a competent person, after sufficient explanation and disclosure of the subject matter involved to enable the person to make a knowing and willful decision without any element of force, fraud, deceit, duress, or other form of constraint or coercion. This person is 18 years of age or older, is not now known to be incompetent to consent to treatment with a guardian advocate, and does not have a health care surrogate or proxy currently making medical treatment decisions. I have found this person to be one of the following: X] Competent to provide express and informed consent, as defined above, for voluntary admission to this facility and is competent to provide express and informed consent for treatment. He/she has the consistent capacity to make well reasoned, willful, and knowing decisions concerning his or her medical or mental health treatment. The person fully and consistently understands the purpose of the admission for examination/placement and is fully capable of personally exercising all rights assured under [place] [] Incompetent to provide express and informed consent to voluntary admission, and this is incompetent to provide express and informed consent to treatment. The person must be transferred to involuntary status and a petition for a guardian advocate filed with the Circuit Court. [] Refusing to provide express and informed consent to voluntary admission but is competent to provide express and informed consent for treatment. The person must be discharged or transferred to involuntary status. Form shall be completed within 24 hours of a person's arrival at the receiving facility and filed in the clinical record of each person: 1. Admitted on a voluntary basis 2. Permitted to provide express and informed consent to his/her own treatment 3. Allowed to transfer from involuntary to voluntary status 4. Prior to permitting a person to consent to his or her own treatment after having been previously found incompetent to consent to treatment. History of Present Illness Capacity: Has capacity Chief Complaint: voices and depression History of Present Illness: Pt is a 38YOAAM with a hx of schizophrenia, cocaine abuse and cannabis who was admitted [facility] due to c/o of depression and AH. Urine tox is positive for cannabis and cocaine. Pt receives outpatient services at [facility] and was previously receiving haldol dec 100mg IM q monthly, seroquel 100mg po QHS and bupropion XL 150mg po Qdaily. He states these medications do not work for him and he previously was on a "better shot" and he would like something different. He denies any hx of EPS or dystonia. He denies SI/HI. He states that AH are impairing and bothersome to him and interfere with his day to day activities. He reported to ED that he was homeless but he states that he rents a small room in a boarding house but doesn't like it there, nor is he pleased with his payee. He states that he only uses drugs when his friends come around b/c he doesn't have enough money. 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 Risks vs benefits, including tardive dyskinesia, metabolic syndrome and gynecomastia discussed. No SI/HI. - Inpatient Certification I certify that the inpatient services were ordered in accordance with Medicare regulations governing the order. This includes certification that hospital inpatient services are reasonable and necessary and in the case of services not specified as inpatient-only under 42 CFR 419.22(n), that they are appropriately provided as inpatient services in accordance to with the 2-midnight benchmark under 43 CFR 412.3(e) I certify that inpatient psychiatric hospital services are medically necessary. Evaluation and treatment and/or diagnostic testing are expected to improve the patient's condition. The patient needs on a daily basis, active treatment furnished directly by or requiring the supervision of inpatient psychiatric facility personnel. Review of Systems Psychiatric: Reports depression, Reports hearing things others do not hear, Reports paranoia PMFSH - History History Provided By: Patient - Surgical History Surgical History: Surgical History (Last Reviewed 04/03/18 @ 18:02 by JOSÉ MIGUEL Martinez) No history of previous surgery - Tobacco History Second Hand Smoke Exposure: No Tobacco Use In Past 30 Days: Yes Smoking Status: Current every day smoker Tobacco Type: Cigarettes - Alcohol History How Often Do You Have a Drink Containing Alcohol: 2 to 3 times a week - Substance Use History Substance History: Active Abuse - Substance Use Type Crack/Cocaine Status: Active Route Used: Inhalation Marijuana Type: cocaine Status: Active Route Used: By Mouth - Travel History Recent Travel in the [place] Within the Last 8 Weeks: No Recent Travel Out of the Country Within the Last 8 Weeks: No - Immunization History Tetanus Immunization: Unsure Hx Influenza Vaccine This Season: Unable to Assess Medications and Allergies Active Medications: Active Medications Acetaminophen (Tylenol) 650 mg PO Q4H PRN PRN Reason: Pain 1-5 or Temp >101F Al Hydrox/Mg Hydrox/Simethicone (Mag-Al Plus Susp Liq) 30 ml PO Q6H PRN PRN Reason: DYSPEPSIA Al Hydroxide/Mg Hydroxide (Milk Of Magnesia Liq) 30 ml PO DAILY PRN PRN Reason: Constipation Lorazepam (Ativan) 1 mg PO Q6H PRN PRN Reason: MODERATE TO SEVERE ANXIETY Lorazepam (Ativan Inj) 1 mg IM Q6H PRN PRN Reason: MODERATE TO SEVERE ANXIETY Nicotine (Habitrol 21 Mg Patch.24 Hr) 1 patch T-DERMAL DAILY FRANCISCO Last Admin: 07/07/18 13:07 Dose: Not Given Allergies Allergy/AdvReac Type Severity Reaction Status Date / Time amoxicillin Allergy Severe HIVES Verified 07/06/18 23:54 penicillin G Allergy Severe Anaphylaxis Verified 07/06/18 23:54 Penicillins Allergy Unknown Anaphylaxis Verified 07/06/18 23:54 Home Medications Medication Instructions Recorded Confirmed Type bupropion HCl [Wellbutrin SR] 150 mg PO DAILY 07/06/18 07/06/18 History haloperidol decanoate [Haldol 100 mg IM Q4W 07/06/18 07/06/18 History Decanoate] quetiapine [Seroquel] 100 mg PO HS 07/06/18 07/06/18 History Results - Labs CBC & Chem 7: 07/06/18 05:05 07/06/18 05:05 Exam Vital signs: Vital Signs 07/07/18 06:00 07/07/18 16:11 Temperature 98.1 F 98.1 F Pulse Rate 69 78 Respiratory Rate 17 17 Blood Pressure 121/68 114/65 Pulse Oximetry 97 97 Intake & Output 07/07/18 07/07/18 07/08/18 06:59 18:59 06:59 Weight 79.3 kg Other: Weight On Admission 79.3 kg Mental Status Examination Appearance: Appropriate Consciousness: Alert Orientation: x4 Motor Activity: Normal gait Speech: Unremarkable Language: Adequate Fund of Knowledge: Adequate Attention and Concentration: Adequate Memory: Unremarkable Mood: Other (elevated) Affect: Other (expansive, some bizarre giggling) Thought Process & Associations: Intact, Goal directed Thought Content: Appropriate Hallucination Type: Other (some internal stimulation) Delusion Type: None Suicidal Ideation: No Suicidal Plan: No Suicidal Intention: No Homicidal Ideation: No Homicidal Plan: No Homicidal Intention: No Insight: Fair Judgment: Impulsive Assessment and Plan - Assessment (1) Schizophrenia Code(s): F20.9 - Schizophrenia, unspecified Status: Acute (2) Cannabis abuse Code(s): F12.10 - Cannabis abuse, uncomplicated Status: Acute (3) Cocaine abuse in remission Code(s): F14.11 - Cocaine abuse, in remission Status: Acute - Plan Plan: Estimated LOS: [] days Start risperidone 1mg po BID for schizophrenia. Continue voluntary admission. Pt would benefit from substance abuse treatment Justification for Continued Inpatient Stay: psychosis
--- NOTE | 2018-07-08 10:31 | P.TTN ---
- Patient Problems Problems: 1. Discharge planning 2. Medication compliance 3. Knowledge deficit 4. Lack of coping skills - Progress Toward Goals Provider Present: Dr. Tyler Gifford (Dr. Gifford will meet with the patient today to determine if the patient needs to remain for further stabilization.) Psychiatric Counselors Present: Drew Abarca Jr., [facility] (Patient has an efficiency where he resides and he will return to this residence upon discharge. ) Group Spec/RT/OT/CONTRERAS Present: DIANE Cheng (Patient is isolating. Patient does not attend groups at this time.) - Documentation Teaching Recipient: Patient
[2018-07-08] MEDS ORDERED: Haloperidol Decanoate Inj 50 MG/ML Ampul IM ONE (13:20)
--- NOTE | 2018-07-08 13:32 | P.PNPSY ---
Subjective Chief Complaint: voices and depression Remarks: Patient initially admitted by Dr. Santana her H&P reviewed and agreed with. Voluntary status. I have and completed the initial psych admission template orders. I have also reviewed the med reconciliation. We will continue patient on the Haldol Decanoate injection 100 mg IM's we will add Seroquel 100 mg at bedtime and Wellbutrin 150 mg daily. It appears patient did recognize me from our prior contact about 3 years ago. When asked about his substance abuse history patient minimized he became somewhat irritable when I attempted to get further detailed information. He basically states he uses it when people give it to him. He is vague about his legal issues also and his various incarcerations though he has had multiple visits to the psychiatric side here to [facility] over the past few months. When confronted with his poor compliance with medication and follow-up with community he became upset and manipulative stating that he would be willing to follow-up with whatever I recommended. He does denies suicidality at the present time is vague somewhat about voices. We will order the medication as mentioned above. At this time patient does not meet criteria for further inpatient stay though for a brief stay related to getting him back on his medications. He can then return to the community and is well place of residence to follow-up probably with [facility] Review of Systems All other systems reviewed negative except as stated in HPI Mental Status Examination Appearance: Appropriate Consciousness: Alert Orientation: x4 Motor Activity: Normal gait Speech: Unremarkable Language: Adequate Fund of Knowledge: Adequate Attention and Concentration: Adequate Memory: Unremarkable Mood: Other (elevated to somewhat guarded and mildly irritable) Affect: Other (expansive, some bizarre giggling) Thought Process & Associations: Intact, Goal directed Thought Content: Appropriate Hallucination Type: Auditory Delusion Type: None Suicidal Ideation: No Suicidal Plan: No Suicidal Intention: No Homicidal Ideation: No Homicidal Plan: No Homicidal Intention: No Insight: Poor Judgment: Poor Assessment and Plan - Assessment (1) Schizophrenia Code(s): F20.9 - Schizophrenia, unspecified Status: Acute (2) Cannabis abuse Code(s): F12.10 - Cannabis abuse, uncomplicated Status: Acute (3) Cocaine abuse in remission Code(s): F14.11 - Cocaine abuse, in remission Status: Acute - Plan Plan: Patient remains somewhat psychotic though there appears also to be a degree of manipulation with this. He is asking medicine to fix his "brain" I did describe the Haldol and the Seroquel that I being ordered as indicated in those situations. Hope this be fairly short stay and can return to the community follow-up [facility] act Justification for Continued Inpatient Stay: At this time patient with decompensated placed on lower level of care Discharge Planning: Return home to community Request Healthcare Surrogate/Guardian Advocate?: No (1) Schizophrenia Qualifiers: Schizophrenia type: paranoid schizophrenia Qualified Code(s): F20.0 - Paranoid schizophrenia
[2018-07-08] MEDS ORDERED: Haloperidol Decanoate Inj 50 MG/ML Ampul IM SCH (13:45)
[2018-07-08] MEDS: buPROPion 150 MG 12 HR Tablet PO SCH (14:03)
[2018-07-08] MEDS ORDERED: QUEtiapine 100 MG Tablet PO SCH ×2 (21:00)
[2018-07-09] MEDS: buPROPion 150 MG 12 HR Tablet PO SCH (08:35)
--- NOTE | 2018-07-09 11:54 | P.DSPSY ---
Psychiatry Discharge Summary Inpatient Psychiatric care?: Yes Advance Directives: No Mental Health Advance Directive: Yes Health Care Proxy: Yes - Admission Admission Date: July 06, 2018 18:58 - Admission Diagnosis (1) Schizophrenia Code(s): F20.9 - Schizophrenia, unspecified (2) Cocaine abuse Code(s): F14.10 - Cocaine abuse, uncomplicated (3) Cannabis abuse Code(s): F12.10 - Cannabis abuse, uncomplicated Brief History: Pt is a 38YOAAM with a hx of schizophrenia, cocaine abuse and cannabis who was admitted [place] [facility] due to c/o of depression and AH. Urine tox is positive for cannabis and cocaine. Pt receives outpatient services at [facility] and was previously receiving haldol dec 100mg IM q monthly, seroquel 100mg po QHS and bupropion XL 150mg po Qdaily. He states these medications do not work for him and he previously was on a "better shot" and he would like something different. He denies any hx of EPS or dystonia. He denies SI/HI. He states that AH are impairing and bothersome to him and interfere with his day to day activities. He reported to ED that he was homeless but he states that he rents a small room in a boarding house but doesn't like it there, nor is he pleased with his payee. He states that he only uses drugs when his friends come around b/c he doesn't have enough money. 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 Risks vs benefits, including tardive dyskinesia, metabolic syndrome and gynecomastia discussed. No SI/HI. Tobacco Use In Past 30 Days: Yes How Often Do You Have a Drink Containing Alcohol: 2 to 3 times a week Hospital Course: Patient's hospital course was uneventful he showed compliance with the milieu and medication from day one though he showed little interaction on the spent most of this time in his room. He was compliant with ADLs and other directions. Patient did receive his Haldol Decanoate injection yesterday. He has been compliant with his other medication. He denies suicidality or homicidality voices or visions. Patient does have follow through [facility] act. He does have a residence to go to. Thus at this time I feel patient reached maximum benefit of this hospitalization. He is to be discharged today to himself. When he was told this which was just a reaffirmation of our discussion of yesterday he said that he does not want to leave yet. I again reiterated the fact that he would be leaving today. He process that fairly well. Thus patient to be discharged today Rx times 1 month follow-up with his injection also on 08/05 Absolute abstinence and referral also to NA - Discharge Discharge Date: 07/09/18 - Discharge Diagnosis (1) Cannabis abuse Diagnosis: Secondary Code(s): F12.10 - Cannabis abuse, uncomplicated Status: Acute (2) Cocaine abuse Diagnosis: Secondary Code(s): F14.10 - Cocaine abuse, uncomplicated Status: Acute (3) Schizophrenia Diagnosis: Principal Code(s): F20.9 - Schizophrenia, unspecified Status: Acute Discharge Disposition: Home - Discharge Instructions Discharge Diet: Regular Diet Activities You Can Perform: Regular- No Restrictions - Discharge Time > 30 minutes Mental Status Examination Appearance: Appropriate Consciousness: Alert Orientation: x4 Motor Activity: Normal gait Speech: Unremarkable Language: Adequate Fund of Knowledge: Adequate Attention and Concentration: Adequate Memory: Unremarkable Mood: Other (elevated to somewhat guarded and mildly irritable) Affect: Other (expansive, some bizarre giggling) Thought Process & Associations: Intact, Goal directed Thought Content: Appropriate Hallucination Type: Auditory Delusion Type: None Suicidal Ideation: No Suicidal Plan: No Suicidal Intention: No Homicidal Ideation: No Homicidal Plan: No Homicidal Intention: No Insight: Poor Judgment: Poor Discharge/Advance Care Plan - Results Vital Signs: Last Vital Signs Temp 97.7 F 07/09/18 11:00 Pulse 62 07/09/18 11:00 Resp 18 07/09/18 11:00 BP 131/70 07/09/18 11:00 Pulse Ox 97 07/09/18 11:00 Lab Results: Laboratory Results TSH 0.761 uIU/mL (0.358-3.740) 07/06/18 05:05 Summary of Procedures: None done Pending Results: None - Medications Number of antipsychotic medications at discharge: 2 Appropriate use of more than 1 antipsychotic med: Doc plan:prev multi med use- monotherapy taper/cross-taper in progress (Would suggest outpatient clinician show a gradual taper of the at bedtime Seroquel as patient stabilizes) - Discharge Care Plan Goals to Promote Your Health: * To prevent worsening of your condition and complications * To maintain your health at the optimal level Directions to Meet Your Goals: Take your medications as prescribed Follow your dietary instruction Follow activity as directed Keep your appointments as scheduled Take your immunizations and boosters as scheduled If your symptoms worsen call your PCP, if no PCP go to Urgent Care Center or Emergency Room For 04/12 questions related to your inpatient stay or results of tests pending at discharge, please contact Dr. Cong Gifford MD at Smoking is Dangerous to Your Health. Avoid second hand smoking (1) Schizophrenia Qualifiers: Schizophrenia type: paranoid schizophrenia Qualified Code(s): F20.0 - Paranoid schizophrenia (3) Schizophrenia Qualifiers: Schizophrenia type: paranoid schizophrenia Qualified Code(s): F20.0 - Paranoid schizophrenia
[2018-08-05] MEDS ORDERED: Haloperidol Decanoate Inj 50 MG/ML Ampul IM SCH (14:45)
== END 2018-07-09 13:00 | disposition home or self-care (01) | DRG 885 ==
LOC: NEPE 01:23 → NEDA 18:58 → H270 21:00
PROVIDERS: ADMIT Psychiatry & Neurology Psychiatry; ATTEND Psychiatry & Neurology Psychiatry
CPT/HCPCS: J1631